=== PATIENT | male | born 1955 ===

== ENCOUNTER 2022-01-04 13:24 | Inpatient (IN) | payer MEDICARE, BC ==
[~2022-01-04] VITALS: Ht 175.3 cm; Wt 106.1 kg
[2022-01-04] MEDS ORDERED: St. John's Wor300 M1 PO (18:08)
[2022-01-04] MEDS ORDERED: Saw Palmetto160 MG (18:09)
[2022-01-04] MEDS ORDERED: Milk Thistle175 M1 PO (18:09)
--- NOTE | 2022-01-04 18:37 | NUR ---
ADMISSION: REPORT RECIEVED FROM LAYNE SANCHEZ RN. PT TO UNIT AT 1830. A/O, AMBULATORY, VSS. ABD SLIGHTLY DISTENDED, AND TENDER ACROSS THE FRONT. PAIN 05/10, DENIES N/V. IV ANTIBIOTIC NOW INFUSING, AT BEDSIDE. WILL PASS REPORT TO NOC RN
[2022-01-05 04:53] LABS: Hematocrit 45.9 % (37.0-53.0); Hemoglobin 15.6 g/dL (13.5-17.5); Mean Corpuscular HGB 30.5 pg (26.0-34.0); Mean Corpuscular Volume 90 fL (80-100); Mean Platelet Volume 10.7 fL (9.1-12.4); Platelet Count 230 K/mm3 (150-400); RDW Coefficient Variation 12.9 % (11.7-14.2); RDW Standard Deviation 42.9 fL (35.1-46.3); Red Blood Cell Count 5.11 M/mm3 (4.30-5.90)
[2022-01-05 05:46] LABS: Albumin/Globulin Ratio 0.7 (0.8-1.8); Bilirubin, Total 0.9 mg/dL (0.1-1.0); Bun/Creatinine Ratio 21.8 (12.0-20.0); Calcium, Blood 8.9 mg/dL (8.5-10.1); Creatinine, Blood 0.96 mg/dL (0.60-1.20); Globulin, Blood 4.1 g/dL (2.2-4.0); Potassium, Blood 3.9 mmol/L (3.5-5.5); Total Protein, Blood 7.1 g/dL (6.4-8.2)
--- NOTE | 2022-01-05 05:46 | NUR ---
MEDICAL COST CONSULTANT SUMMARY NEW ADMIT FROM THE ED. PT ADMITED FOR ACUTE GENO. DR GILMORE TO CONSULT LATER TODAY, PT HAS BEEN NPO SINCE MIDNIGHT IN PREP FOR SURGERY. PT STATES PAIN HAS BEEN "NOT TOO BAD" AND HAS DENIED PAIN MEDS. PT STATES HE "TRIES TO AVOID PAIN MEDS IF POSSIBLE". PT HAS RESTED MOST OF THE NIGHT WITH NO COMPLAINTS. VSS, WILL CONTINUE TO MONITOR.
--- NOTE | 2022-01-05 11:00 | NUR ---
PATIENT TO OR WITH [facility]
--- NOTE | 2022-01-05 13:57 | NUR ---
PT AND FAMILY MADE AWARE OF DELAY. PTS SURGERY BUMPED FOR LABOR AND DELIVERY. PT GIVEN MOIST MOUTH SWAB, LIP BALM, AND WARM BLANKETS. PT MEDICATED WITH 25MCG OF IV FENTANYL X2 DOSES 5 MIN APART AT 1347 AND 1352 FOR A TOTAL OF 50MCG. PT VS MONITORED CLOSELY. AT BEDSIDE.
--- NOTE | 2022-01-05 22:41 | NUR ---
PT ARIVED TO THE FLOOR FROM PACU. A/OX3, DROWSY, AND IN PAIN. ON 2L O2. INCISIONS ARE C/D/I, DRESSING FOR RAND DRAIN IS C/D/I. PT IS REFUSING NARCOTIC PAIN MEDICATION AT THIS TIME, PLAN TO EDUCATE ON PAIN MANAGEMENT. VSS,
--- NOTE | 2022-01-06 03:54 | NUR ---
POD1 FOR A LAP GENO. VSS. INCISIONS ARE C/D/I. THE PT SLEPT WELL T/O THE NIGHT. MEDICATED FOR PAIN WITH TYLENOL AND FENTENYL. THE PATIENT WAS VERY HESITENT TO TAKE NARCOTICS AT FIRST BECAUSE HE STATED THAT THE NARCOTICS IN THE OR "TOOK HIM TO A BAD PLACE". AFTER APPROPRIATE EDUCATION AND SPOUSAL SUPPORT THE PATIENT WAS WILLING TO TAKE A DOSE. THE PATIENT WAS ONLY ABLE TO DANGLE AT BEDSIDE THIS AM FOR A MOMENT BEFORE RETURNING TO BED DUE TO PAIN, A PLAN WAS MADE WITH THE PATIENT TO TAKE PAIN MEDICATION REGULARLY UNTIL HIS PAIN IS UNDER CONTROL. THE PATIENT TOLLERATED CLEARS T/O THE NIGHT, VOIDED W/O DIFFICULTY, AND PASSED FLATTUS REGULARLY. PLAN FOR THE PT TO SPEAK WITH DR GILMORE THIS AM TO DISUSS IF HE IS DISCHARGING TODAY. THE PATIENT IS CURRENTLY RESTING IN BED, SPOUCE AT BEDSIDE, CALL LIGHT IN REACH.
[2022-01-06 04:37] LABS: Hematocrit 42.3 % (37.0-53.0); Hemoglobin 14.3 g/dL (13.5-17.5); Mean Corpuscular HGB 30.6 pg (26.0-34.0); Mean Corpuscular HGB Conc 33.8 g/dL (31.5-36.5); Mean Corpuscular Volume 90 fL (80-100); Mean Platelet Volume 10.8 fL (9.1-12.4); Platelet Count 233 K/mm3 (150-400); RDW Coefficient Variation 12.8 % (11.7-14.2); RDW Standard Deviation 42.5 fL (35.1-46.3); Red Blood Cell Count 4.68 M/mm3 (4.30-5.90); White Blood Cell Count 11.86 K/mm3 (4.00-11.30)
[2022-01-06 04:53] LABS: Albumin, Blood 2.7 g/dL (3.4-5.0); Albumin/Globulin Ratio 0.6 (0.8-1.8); Bilirubin, Total 0.6 mg/dL (0.1-1.0); Bun/Creatinine Ratio 21.9 (12.0-20.0); Calcium, Blood 8.3 mg/dL (8.5-10.1); Creatinine, Blood 0.87 mg/dL (0.60-1.20); Globulin, Blood 4.2 g/dL (2.2-4.0); Potassium, Blood 4.3 mmol/L (3.5-5.5); Total Protein, Blood 6.9 g/dL (6.4-8.2)
--- NOTE | 2022-01-07 04:53 | NUR ---
POD2 FOR A LAP GENO. INCISIONS SITES ARE C/D/I. VSS. PT SLEPT WELL T/O THE NIGHT. VOIDING, PASSING GAS, AND A SMALL BM W/O DIFFICULTY. TOLLERATING PO INTAKE W/O N/V. MEDICATED FOR PAIN WITH OXY AND TYLENOL WITH GOOD RESULTS. RAND DRAIN HAS HAD MINIMAL SS OUTPUT, DRESSING IS C/D/I. PT HAS AMBULATED IN THE ROOM INDEPENDENTLY T/O THE NIGHT. PLAN FOR PT TO D/C HOME TODAY. PATIENT IS CURRENTLY SLEEPING, IN NO DISTRESS. CALL LIGHT IN REACH
--- NOTE | 2022-01-07 10:20 | NUR ---
RAND DRAIN DSG CHANGED BY DR. GILMORE, PT AND GIVEN INSTRUCTIONS ON RAND CARE, PT'S DEMONSTRATED PROPER EMPTYING OF DRAIN, PT TAKING A SHOWER THEN GOING TO DC HOME, DRAIN AREA COVERED W/ OPSITE BY DR. GILMORE.
[2022-01-07] MEDS ORDERED: OXYC5 PO (11:15)
[2022-01-07] MEDS ORDERED: AMOCLA875 PO (11:15)
--- NOTE | 2022-01-07 12:01 | NUR ---
DC'D HOME, DC INSTRUCTIONS GIVEN, VERBALIZED UNDERSTANDING.
== END 2022-01-07 12:02 | disposition home or self-care (01) | DRG 418 ==
LOC: ER 13:24 → SURS 13:25
PROVIDERS: Internal Medicine; Surgery; ADMIT Internal Medicine
PROC: 8E0W4CZ Robotic Assisted Procedure of Trunk Region, Percutaneous Endoscopic Approach (ICD-10-PCS; 2022-01-05)
PROC: 0FT44ZZ Resection of Gallbladder, Percutaneous Endoscopic Approach (ICD-10-PCS; principal; 2022-01-05 08:30)
DX: K80.00 Calculus of gallbladder with acute cholecystitis without obstruction (principal); K82.A2 Perforation of gallbladder in cholecystitis; B96.20 Unspecified Escherichia coli [E. coli] as the cause of diseases classified elsewhere; B96.1 Klebsiella pneumoniae [K. pneumoniae] as the cause of diseases classified elsewhere; H91.93 Unspecified hearing loss, bilateral; Z96.653 Presence of artificial knee joint, bilateral; Z98.52 Vasectomy status; Z98.890 Other specified postprocedural states; Z88.8 Allergy status to other drugs, medicaments and biological substances; Z79.899 Other long term (current) drug therapy; Z87.891 Personal history of nicotine dependence
CPT/HCPCS: 36415; 80053; 85027; 87070; 87075; 87077; 87186; 87205; 88304; 93005; 93010; 96366; 96367; 96372; 96375; 96376; A9270; G0378; J0696; J1100; J1650; J1885; J2250; J2370; J2405; J2543; J2704; J2795; J3010; J7030; J7050; J7120

== ENCOUNTER → 2022-01-04 | Outpatient (CLI) | payer MEDICARE, BC ==
[~2022-01-04] MED LIST: AMOCLA875 PO; Milk Thistle175 M1 PO; OXYC5 PO; Saw Palmetto160 MG; St. John's Wor300 M1 PO
[2022-01-04 10:43] LABS: BASOPHILS ABSOLUTE AUTO 0.05 K/mm3 (0.00-0.23); BASOPHILS PERCENT AUTO 1 % (0-2); EOSINOPHILS ABSOLUTE AUTO 0.25 K/mm3 (0.00-0.68); EOSINOPHILS PERCENT AUTO 2 % (0-6); Hematocrit 48.8 % (37.0-53.0); IMMATURE GRAN ABSOLUTE AUTO 0.02 K/mm3 (0.00-0.10); IMMATURE GRAN PERCENT AUTO 0 % (0-1); LYMPHOCYTES ABSOLUTE AUTO 2.76 K/mm3 (0.84-5.20); LYMPHOCYTES PERCENT AUTO 26 % (21-46); MONOCYTES ABSOLUTE AUTO 1.25 K/mm3 (0.16-1.47); MONOCYTES PERCENT AUTO 12 % (4-13); Mean Corpuscular HGB Conc 34.8 g/dL (31.5-36.5); Mean Corpuscular Volume 89 fL (80-100); Mean Platelet Volume 10.4 fL (9.1-12.4); NEUTROPHILS ABSOLUTE AUTO 6.51 K/mm3 (1.96-9.15); NEUTROPHILS PERCENT AUTO 60 % (41-73); Platelet Count 232 K/mm3 (150-400); RDW Coefficient Variation 13.1 % (11.7-14.2); Red Blood Cell Count 5.48 M/mm3 (4.30-5.90); White Blood Cell Count 10.84 K/mm3 (4.00-11.30)
[2022-01-04 10:51] LABS: Albumin, Blood 3.5 g/dL (3.4-5.0); Albumin/Globulin Ratio 0.8 (0.8-1.8); Bilirubin, Total 0.9 mg/dL (0.1-1.0); Bun/Creatinine Ratio 13.3 (12.0-20.0); Calcium, Blood 9.1 mg/dL (8.5-10.1); Creatinine, Blood 1.05 mg/dL (0.60-1.20); Globulin, Blood 4.4 g/dL (2.2-4.0); Potassium, Blood 4.3 mmol/L (3.5-5.5); Total Protein, Blood 7.9 g/dL (6.4-8.2)
== END | disposition home or self-care (01) ==
LOC: LAB 10:37 → LAB SHORT 10:37
PROVIDERS: Physician Assistant
DX: R10.11 Right upper quadrant pain (principal)
CPT/HCPCS: 80053; 83690; 85025